=== PATIENT | male | born 1945 | race Caucasian/White ===

== ENCOUNTER 2020-03-13 09:36 | Day surgery (SDC) | payer OTHER ==
[~2020-03-13] VITALS: Ht 167.6 cm; Wt 66.7 kg
[2020-03-13 10:15] VITALS: BP 168/70
[2020-03-13 14:24] VITALS: BP 156/76
== END 2020-03-13 14:10 | disposition home or self-care (01) ==
LOC: GI 09:36 → OR 12:00 → GI 14:10
PROVIDERS: ATTEND Internal Medicine Gastroenterology
DX: R63.4 Abnormal weight loss (principal); K57.30 Diverticulosis of large intestine without perforation or abscess without bleeding; K64.8 Other hemorrhoids; Z20.828 Contact with and (suspected) exposure to other viral communicable diseases; Z68.23 Body mass index [BMI] 23.0-23.9, adult
CPT/HCPCS: 43235; 45378; J1200; J1610; J2250; J2310; J3010; J3490; U0003